=== PATIENT | male | born 1960 | race Caucasian/White ===

== ENCOUNTER 2021-07-07 12:50 | Emergency (ER) | payer MEDICAID, OTHER ==
[~2021-07-07] VITALS: Ht 160 cm; Wt 68.3 kg
[2021-07-07] MEDS ORDERED: ONDANSETRON 2MG/ML, 2ML ONE (13:55)
[2021-07-07] MEDS ORDERED: KETOROLAC 30 MG/1 ML ONE (13:55)
[2021-07-07] MEDS ORDERED: KETOROLAC 30 MG/1 ML IVPush ONE (14:00)
[2021-07-07] MEDS ORDERED: SODIUM CHLORIDE FLUSH 10ML SYR IVF ONE (14:00)
[2021-07-07] MEDS ORDERED: ONDANSETRON 2MG/ML, 2ML IVPush ONE (14:00)
--- NOTE | 2021-07-07 14:02 | NUR ---
PT MEDICATED PER ORDER
[2021-07-07 14:22] LABS: BASOPHILS % (AUTO) 1 % (0-1); EOSINOPHILS % (AUTO) 1 % (1-7); LYMPHOCYTES % (AUTO) 22 % (22-44); MEAN CORPUSCULAR HEMOGLOBIN 31.5 pg (27.5-34.5); MEAN CORPUSCULAR HGB CONC 34.1 g/dL (33.2-36.2); MEAN PLATELET VOLUME 7.6 fL (7.4-10.4); MONOCYTES % (AUTO) 12 % (2-9); NEUTROPHILS % (AUTO) 64 % (42-75); PLATELET COUNT 241 x10^3/uL (130-400); RED BLOOD COUNT 4.59 x10^6/uL (4.38-5.82); RED CELL DISTRIBUTION WIDTH 13.5 % (9.4-14.8)
[2021-07-07 14:34] LABS: ALANINE AMINOTRANSFERASE 23 U/L (12-78); ALBUMIN 3.4 g/dL (3.4-5.0); ANION GAP 5 mmol/L (5-15); CALCIUM 8.9 mg/dL (8.5-10.1); CHLORIDE 107 mmol/L (98-107); CREATININE 0.94 mg/dL (0.7-1.3)
[2021-07-07 14:36] LABS: ALKALINE PHOSPHATASE 80 U/L (45-117); BILIRUBIN,TOTAL 0.4 mg/dL (0.2-1.0); TOTAL PROTEIN 7.2 g/dL (6.4-8.2)
--- NOTE | 2021-07-07 14:43 | NUR ---
UA SENT, PT STATES HE HAS PAIN, TORADOL NOT EFFECTIVE
--- NOTE | 2021-07-07 14:51 | NUR ---
PT IN IMAGING
[2021-07-07 14:58] LABS: MICROSCOPIC NOT IND
--- NOTE | 2021-07-07 15:30 | NUR ---
SEEN BY MD MALIK. NO EVIDENCE OF KIDNEY STONE.
--- NOTE | 2021-07-07 16:35 | NUR ---
Patient/given discharge instructions and they have confirmed that they understand the instructions. Patient ambulatory with steady gait Ly monge
[2021-07-07 16:36] VITALS: BP 120/84
== END 2021-07-07 16:38 | disposition home or self-care (01) ==
LOC: ED 13:00
DX: N23 Unspecified renal colic (principal)
CPT/HCPCS: 36415; 74176; 80053; 81003; 85025; 96374; 96375; 99284; J1885; J2405